=== PATIENT | female | born 1980 | race Caucasian/White ===

== ENCOUNTER → 2017-10-30 | Emergency (ER) | payer OTHER ==
[~2017-10-30] VITALS: Ht 165.1 cm; Wt 52.0 kg
[~2017-10-30] MED LIST: CYCL-1 PO; HYDR-569 PO
[2017-10-30 12:08] VITALS: BP 106/66
== END | disposition home or self-care (01) ==
LOC: ER 10:37
DX: S83.411A Sprain of medial collateral ligament of right knee, initial encounter (principal); G89.29 Other chronic pain; Z90.710 Acquired absence of both cervix and uterus; W18.39XA Other fall on same level, initial encounter; Y93.23 Activity, snow (alpine) (downhill) skiing, snowboarding, sledding, tobogganing and snow tubing; Y92.89 Other specified places as the place of occurrence of the external cause; Y99.8 Other external cause status
CPT/HCPCS: 29505; 73564; 99284

== ENCOUNTER 2017-12-07 16:39 | Emergency (ER) | payer OTHER ==
[~2017-12-07] VITALS: Ht 165.1 cm; Wt 50.0 kg
[2017-12-07] MEDS ORDERED: cyclobenzaprine 10mg tablet PO ONE (18:00)
[2017-12-07] MEDS ORDERED: ketorolac trometh. 30mg/ml inj. IM ONE (18:00)
[2017-12-07] MEDS ORDERED: HYDROcodone/acetaminophen 10/325mg tab PO ONE (18:00)
[2017-12-07] MEDS ORDERED: CYCL-1 PO (18:07)
[2017-12-07] MEDS ORDERED: HYDR-3965 PO (18:07)
[2017-12-07 19:43] VITALS: BP 139/79
== END 2017-12-07 19:45 | disposition home or self-care (01) ==
LOC: ER 16:40
DX: S16.1XXA Strain of muscle, fascia and tendon at neck level, initial encounter (principal); G89.29 Other chronic pain; Z87.891 Personal history of nicotine dependence; Z90.710 Acquired absence of both cervix and uterus; V43.52XA Car driver injured in collision with other type car in traffic accident, initial encounter; Y93.89 Activity, other specified; Y92.488 Other paved roadways as the place of occurrence of the external cause; Y99.8 Other external cause status
CPT/HCPCS: 72040; 72125; 96372; 99284; J1885

== ENCOUNTER 2024-10-13 18:49 | Emergency (ER) | payer MEDICAID, OTHER ==
[~2024-10-13] VITALS: Ht 165.1 cm; Wt 50.0 kg
[~2024-10-13 18:49] MED LIST changes: +HYDR-4383 PO; -HYDR-569 PO
[2024-10-13 19:04] VITALS: BP 149/111; PULSE 87; RESP 18; O2SAT 100
[2024-10-13] MEDS ORDERED: PRED10TA23 PO (19:45)
[2024-10-13] MEDS ORDERED: AMOX-117 PO (19:45)
[2024-10-13 20:04] VITALS: TEMP 97.9
[2024-10-13] MEDS: amox tr/potassium clavulanate 875/125mg TAB PO ONE (20:42)
[2024-10-13] MEDS: dexamethasone sod phosphate 10mg/ml inj PO STA (20:42)
== END 2024-10-13 20:45 | disposition home or self-care (01) ==
LOC: ER 18:50
DX: J06.9 Acute upper respiratory infection, unspecified (principal); Z20.822 Contact with and (suspected) exposure to COVID-19; G89.29 Other chronic pain; Z79.2 Long term (current) use of antibiotics; Z79.899 Other long term (current) drug therapy; Z90.710 Acquired absence of both cervix and uterus; Z59.00 Homelessness unspecified
CPT/HCPCS: 36415; 71045; 87502; 87503; 87811; 99284; J1100

== ENCOUNTER 2025-07-29 11:22 | Emergency (ER) | payer MEDICAID ==
[~2025-07-29] VITALS: Ht 165.1 cm; Wt 54.0 kg
[2025-07-29 12:05] LABS: MEAN PLATELET VOLUME 8.2 FL (7.4-10.4); RED CELL DISTRIBUTION WIDTH 14.1 % (11.5-14.5)
[2025-07-29 12:19] LABS: CREATININE 0.65 MG/DL (0.40-0.90); TOTAL CARBON DIOXIDE 28.9 MMOL/L (24-32); eCRCL 92 ML/MIN; eGFR > 90 ML/MIN
[2025-07-29] MEDS: ketorolac trometh 15mg/ml vial 15 MG/ML ML IM ONE (12:34)
--- NOTE | 2025-07-29 12:44 | RADIOLOGY REPORT ---
CHEST RADIOGRAPH Indication: chest pain Technique: Single frontal view of the chest was obtained. Comparison: DI CHEST,SINGLE VIEW on DOS: 10/13/24 Findings: No focal consolidation. No significant pleural effusion. No pneumothorax. Nonenlarged cardiomediastinal silhouette. IMPRESSION: No acute pulmonary process.
[2025-07-29 12:46] VITALS: TEMP 98.2
[2025-07-29 12:53] LABS: LEUKOCYTE ESTERASE ,URINE NEGATIVE (Neg); NITRITES, URINE NEGATIVE (Neg); OCCULT BLOOD,URINE NEGATIVE (Neg); UA COLLECTION TYPE NON-SPECIFIED
[2025-07-29 13:01] LABS: URINE AMPHETAMINE SCREEN NEGATIVE (Neg); URINE BARBITUATE SCREEN NEGATIVE (Neg); URINE BENZODIAZEPINES SCREEN NEGATIVE (Neg); URINE CANNABINOID SCREEN POSITIVE (Neg); URINE COCAINE SCREEN POSITIVE (Neg); URINE METHADONE SCREEN NEGATIVE (Neg); URINE OPIATE SCREEN NEGATIVE (Neg); URINE PHENCYCLIDINE SCREEN NEGATIVE (Neg)
[2025-07-29] MEDS: HYDROcodone/acetaminophen 5mg/325mg tablet PO ONE (15:16)
--- NOTE | 2025-07-29 15:32 | Physician Documentation ---
History of Present Illness ~ General Chief Complaint: Jaw Pain Stated Complaint: GROIN PAIN Time Seen by MD: 11:23 Primary Medical Doctor: [facility] History of Present Illness Initial Comments 45 year old female presents via EMS reporting sudden onset of L groin pain radiating to her left shoulder. Also reports headache. Started shortly [employer]NA[employer]. Denies urinary symptoms, fevers, cough, shortness of breath. Is poor historian. She drinks large amounts of alcohol daily and is shaky, last drink was last night. Medication Reconciliation Allergies: Coded Allergies: bupropion (Verified Allergy, Unknown, 07/29/25) prochlorperazine (Verified Adverse Reaction, Unknown, 07/29/25) varenicline (Verified Adverse Reaction, Unknown, mouth blisters, 07/29/25) Scheduled Cyclobenzaprine* (Cyclobenzaprine*), 1 TAB PO TID Hydrocodone/Acetaminophen ([place] 5-325 Tablet), 1 TAB PO TID PRN Hydrocodone/Acetaminophen ([place] 5-325 Tablet), 1 TAB PO TID PRN Scheduled PRN Cyclobenzaprine* (Cyclobenzaprine*), 1 TABLET PO Q8H PRN for muscle spasms Past Medical History Past Medical History: Chronic Back Pain Past Surgical History: hysterectomy Alcohol Use: None Drug Use: none Lives with: Spouse Lives In: Home Review of Systems All Other Systems at this time: Reviewed and Negative Physical Exam Physical Exam Vital Signs: RN Vital Signs have been reviewed: Yes, Temperature: 98.2, Source: Temporal, Heart Rate: 89, Respiratory Rate: 18, BP: 135/89, Pulse Oximetry: 97, Weight: 54.000 Oxygen Flow Rate: 0 Physical Exam Gen: disheveled HEENT: PERRL, EOMI Pulm: no distress CTAB CV: deferred regular tachycardia Abd: soft, NT, ND MSK: no deformity Skin: w/d/i; erythematous papules over forearms Neuro: nonfocal, shaky Psych: unremarkable Progress Results/Orders Results/Orders Orders - WONG CAMPOS MD Chest,Single View (07/29/25 12:30) Completed Orders - WONG CAMPOS MD Cbc/Diff (07/29/25 11:31) CMP (07/29/25 11:31) Urinalysis, Cult If Indicated (07/29/25 11:31) Drug Screen, Urine (07/29/25 11:31) Diazepam Tablet (Valium Tablet) (07/29/25 11:35) Ketorolac Trometh 15mg/Ml Vial (Toradol (07/29/25 11:45) Chest,Single View (07/29/25 12:30) Hydrocodone/Apap 5/325mg Tab ([place] 5/32 (07/29/25 14:50) Normal Saline 1000ml (0.9% Sodium Chlori (07/29/25 15:40) Medications Received in ER Medications (Trade) Dose Ordered Sig/Manuel Route PRN Reason Start Time Stop Time Status Last Admin Dose Admin (Valium tablet) 10 mg ONCE ONCE PO 07/29/25 11:35 07/29/25 11:36 DC 07/29/25 12:35 10 MG (Toradol injection) 30 mg ONCE ONCE IM 07/29/25 11:45 07/29/25 11:46 DC 07/29/25 12:34 30 MG ([place] 5/325mg tablet) 1 tab ONCE ONCE PO 07/29/25 14:50 07/29/25 14:51 DC 07/29/25 15:16 1 TAB Sodium Chloride 1,000 ml @ 1,000 mls/hr ONCE ONCE IV 07/29/25 15:40 07/29/25 16:39 DC 07/29/25 15:54 1,000 MLS/HR Vital Signs 07/29/25 07/29/25 07/29/25 07/29/25 11:27 11:45 12:00 12:15 Temp 98.7 Pulse 107 97 113 97 Resp 13 10 14 B/P (MAP) 149/103 140/93 (109) 150/113 (125) 137/98 (111) Pulse Ox 100 96 99 99 O2 Flow Rate 0 0 0 07/29/25 07/29/25 07/29/25 07/29/25 12:30 12:35 12:46 13:00 Temp 98.2 Pulse 96 97 95 Resp 14 16 20 12 B/P (MAP) 139/98 (112) 139/93 (108) 124/90 (101) Pulse Ox 96 99 96 O2 Flow Rate 0 0 0 07/29/25 07/29/25 07/29/25 07/29/25 13:30 13:30 14:00 15:16 Pulse 90 89 Resp 16 14 18 B/P (MAP) 135/89 (104) Pulse Ox 67 97 O2 Flow Rate 0 0 07/29/25 16:31 Pulse 92 Resp 20 B/P (MAP) 156/103 Pulse Ox 98 Laboratory Tests Test 07/29/25 11:50 07/29/25 12:37 White Blood Count 8.5 Red Blood Count 3.97 L Hemoglobin 13.4 Hematocrit 38.1 Mean Corpuscular Volume 95.9 Mean Corpuscular Hemoglobin 33.7 H Mean Corpuscular Hemoglobin Concent 35.1 Red Cell Distribution Width 14.1 Platelet Count 121 L Mean Platelet Volume 8.2 Neutrophils (%) (Auto) 63.4 Lymphocytes (%) (Auto) 26.7 Monocytes (%) (Auto) 8.3 Eosinophils (%) (Auto) 1.3 Basophils (%) (Auto) 0.3 Neutrophils # (Auto) 5.4 Lymphocytes # (Auto) 2.3 Monocytes # (Auto) 0.7 Eosinophils # (Auto) 0.1 Basophils # (Auto) 0.0 CBC Comment Sodium Level 142 Potassium Level 3.6 Chloride Level 106 Carbon Dioxide Level 28.9 Anion Gap 7 L Blood Urea Nitrogen 10 Creatinine 0.65 Estimated GFR/1.73 m2 > 90 BUN/Creatinine Ratio 15.4 Glucose Level 94 Calcium Level 8.3 L Total Bilirubin 0.4 Aspartate Amino Transf (AST/SGOT) 118 H Alanine Aminotransferase (ALT/SGPT) 110 H Alkaline Phosphatase 76 Total Protein 6.9 Albumin 3.9 Globulin 3.0 Albumin/Globulin Ratio 1.3 Chemistry Comments Urine Specimen Description Non-specified Urine Color Yellow Urine Clarity Clear Urine pH 6.5 Urine Specific [place] 1.010 Urine Protein Negative Urine Glucose (UA) Negative Urine Ketones Negative Urine Occult Blood Negative Urine Nitrite Negative Urine Bilirubin Negative Urine Urobilinogen 0.2 Urine Leukocyte Esterase Negative Urine Culture Indicated Not ind Volume Urine Centrifuged 10 ml Urine Comment Urine Opiates Screen Negative Urine Methadone Screen Negative Urine Fentanyl Screen Negative Urine Barbiturates Screen Negative Urine Phencyclidine Screen Negative Urine Amphetamines Screen Negative Urine Benzodiazepines Screen Negative Urine Cocaine Screen Positive Urine Cannabinoids Screen Positive Drug Screen Comment Medical Decision Making Additional information obtaine: N/A Findings 45 year old female with likely substance intoxication and alcohol withdrawal. CXR interpreted by me demonstrated normal contours, no PTX, no PNA, ACS/KS workup negative. UA suggested cocaine intoxication. Fluids, meds, improved on reevaluation. Differential Diagnosis Ddx = alcohol withdrawal, substance intoxication, ACS/KS, pancreatitis, femoral hernia, UTI, pyelonephritis, pneumonia Departure Disposition: 01 HOME / SELF CARE / HOMELESS Impression: Primary Impression: Alcohol withdrawal Additional Impression: Cocaine intoxication Condition: Stable Discharge Instructions: Alcohol Withdrawal Syndrome Referrals: NO PRIMARY CARE PROVIDER (PCP) Education Educated: Patient Educated regarding: diagnosis, treatment, prognosis, need for follow up Signature Scribe Signature: . Attestation: . WONG CAMPOS MD Jul 29, 2025 15:32
[2025-07-29] MEDS: normal saline 1000ml 1,000 ML IV ONE (15:54)
[2025-07-29 16:31] VITALS: BP 156/103; PULSE 92; RESP 20; O2SAT 98
== END 2025-07-29 16:39 | disposition home or self-care (01) ==
LOC: ER 11:23
DX: F10.239 Alcohol dependence with withdrawal, unspecified (principal); F14.129 Cocaine abuse with intoxication, unspecified; G89.29 Other chronic pain; Z88.8 Allergy status to other drugs, medicaments and biological substances; Z90.710 Acquired absence of both cervix and uterus; Z79.899 Other long term (current) drug therapy; Y90.9 Presence of alcohol in blood, level not specified
CPT/HCPCS: 36415; 71045; 80053; 80305; 81003; 85025; 96360; 96372; 99285; J1885; J7030